=== PATIENT | female | born 2000 | race Caucasian/White ===

== ENCOUNTER 2018-08-28 09:08 | Day surgery (SDC) | payer BC ==
[~2018-08-28 09:08] MED LIST: Buffered Lidocaine 0.9% SYRIN* 5 ML/SYR SYRINGE INTRADERM ONE; Lactated Ringers 1000 ML Bag* 1,000 ML IV SCH; Sodium Citrate/Citric Acid* 15 ML UDC PO ONE
[2018-08-28] MEDS ORDERED: Sodium Citrate/Citric Acid* 15 ML UDC ONE (09:19)
[2018-08-28] MEDS ORDERED: Buffered Lidocaine 1% SYRIN* 1 ML/SYRINGE ONE (09:19)
[2018-08-28] MEDS ORDERED: fentaNYL* 50 MCG/ML 2 ML VIAL (100 MCG VIAL) ONE ×2 (11:52→12:38)
[2018-08-28] MEDS ORDERED: Lidocaine 2% PF * 5 ML VIAL ONE (11:53)
[2018-08-28] MEDS ORDERED: Dexamethasone IV* 4 MG/ML 1 ML (4 MG) ONE (11:53)
[2018-08-28] MEDS ORDERED: Propofol* 10 MG/ML 20 ML BTL ONE (11:53)
[2018-08-28] MEDS ORDERED: Succinylcholine* 20 MG/ML 10 ML VIAL ONE (12:07)
[2018-08-28] MEDS ORDERED: fentaNYL* 50 MCG/ML 2 ML VIAL (100 MCG VIAL) IV PRN (12:14)
[2018-08-28] MEDS ORDERED: Ondansetron INJ* 2 MG/ML VIAL IV PRN (12:14)
[2018-08-28] MEDS ORDERED: Naloxone* 0.4 MG/ML 1 ML VIAL IV PRN (12:14)
[2018-08-28] MEDS ORDERED: Ibuprofen PED LIQ 100 MG/5 ML UDC ONE ×2 (13:14→13:16)
[2018-08-28 14:16] VITALS: BP 114/76
--- NOTE | 2018-08-28 19:34 | OP ---
DATE OF OPERATION: 08/28/18 - SDS DATE OF : 98. SURGEON: Jose Hall MD ENROLLED NURSE: None. ANESTHESIA: General. PRE-OP DIAGNOSIS: Chronic tonsillitis. POST-OP DIAGNOSIS: Chronic tonsillitis. OPERATIVE PROCEDURE: Tonsillectomy. ESTIMATED BLOOD LOSS: Less than 10 cc. SPECIMENS: Right and left tonsils to Pathology. INDICATION: This is a 17-year-old woman with chronic tonsillitis, who presents for elective tonsillectomy. DESCRIPTION OF PROCEDURE: She was brought to the operating room where general anesthesia was induced and an oral endotracheal tube was placed. The table was turned 90 degrees. The patient was draped and a time-out was performed. A McIvor mouth gag was used to facilitate exposure of the oropharynx and was suspended from the Álvarez stand. The right tonsil was addressed first. It was grasped with a straight Allis forceps, retracted medially, and dissected free of its fossa with the Coblation device at a setting of 7 and 3. There was minimal bleeding. The procedure was repeated on the left side in an identical fashion, again utilizing the coblation device with minimal bleeding. Once the tonsils were removed, the superior and inferior pole regions were prophylactically cauterized with the bipolar function on the device at a setting of 5. An orogastric tube was then passed into the stomach and the stomach contents were evacuated. The mouth gag was then let down for a period of a minute. It was opened again. The oropharynx was inspected. There was no evidence of active bleeding. The patient was then returned to the care of the anesthesiologist, extubated, and delivered to the PACU in stable condition. [id number] #: [id number] [facility]
== END 2018-08-28 14:16 | disposition home or self-care (01) ==
LOC: OR 09:08
PROVIDERS: ATTEND Otolaryngology
DX: J35.01 Chronic tonsillitis (principal)
CPT/HCPCS: 81025; 88304; A9270-GY; J0330; J1100; J2704; J3010